=== PATIENT | female | born 1975 | race Caucasian/White ===

== ENCOUNTER 2023-12-19 16:57 | Emergency (ER) | payer OTHER, SELFPAY ==
[2023-12-19 16:59] VITALS: BP 169/110
[2023-12-19 17:14] LABS: % Basophils 0.5 % (0-2); % Eosinophils 1.6 % (0-6); % Immature Granulocytes 0.4 % (0-0.5); % Lymphocytes 25.9 % (20.5-51.1); % Monocytes 5.8 % (1.7-9.3); % Neutrophils 65.8 % (42.2-75.2); Absolute Basophils 0.1 10^3/uL (0-0.2); Absolute Eosinophils 0.2 10^3/uL (0-0.7); Absolute Lymphocytes 2.4 10^3/uL (1.2-3.4); Absolute Monocytes 0.5 10^3/uL (0.1-0.6); Absolute Neutrophils 6.1 10^3/uL (1.4-6.5); Hematocrit 42.4 % (37.0-47.0); Hemoglobin 15.1 g/dL (12.0-16.0); Mean Corp Hgb Conc. 35.6 g/dL (33.0-37.0); Mean Corpuscular Hgb 31.1 pg (27.0-31.0); Mean Corpuscular Volume 87.2 fL (81.0-99.0); Mean Platelet Volume 9.9 fL (7.4-10.4); Nucleated Red Blood Cells % 0 %; Platelet Count 276 10^3/uL (130-400); Red Blood Cell Count 4.86 10^6/uL (4.20-5.40); Red Cell Dist. Width 12.3 % (11.5-14.5); White Blood Cell Count 9.2 10^3/uL (4.8-10.8)
[2023-12-19 17:26] LABS: HCG, Serum Qualitative Screen Negative
[2023-12-19 17:29] LABS: Urine Albumin 2+ (Neg - Trace); Urine Bilirubin 1+ (Negative); Urine Character Slightly Cloudy (Clear); Urine Color Yellow; Urine Glucose Negative (Negative); Urine Ketone 1+ (Negative); Urine Leukocyte 1+ (Negative); Urine Nitrite Positive (Negative); Urine Occult Blood 4+ (Negative); Urine Urobilinogen 1+ (Neg - 1+)
[2023-12-19 17:30] LABS: ALT (SGPT) 35 U/L (0-35); AST (SGOT) 45 U/L (14-36); Albumin 4.3 g/dl (3.5-5.0); Alkaline Phosphatase 56 U/L (38-126); Blood Urea Nitrogen 12 mg/dl (7-17); Calcium 10.2 mg/dl (8.4-10.2); Carbon Dioxide 26 mmol/L (22-30); Chloride 96 mmol/L (98-107); Glucose 179 mg/dl (70-99); Sodium 135 mmol/L (135-145); Total Protein 7.3 g/dl (6.3-8.2); eGFR > 60.00
[2023-12-19 17:37] LABS: Urine Calcium Oxalate Crystals Present
[2023-12-19 17:38] LABS: Urine Red Blood Cell >100 /HPF (0-2)
[2023-12-19 17:39] LABS: Urine Bacteria Few (Negative)
[2023-12-19 18:12] VITALS: BP 124/83
--- NOTE | 2023-12-19 19:23 | ED.GENMED ---
History of Present Illness
General
Chief Complaint: Flank Pain
Source: patient
Time Seen by Provider: 12/19/23 18:19
Travel History
Have you had any contact with someone who has COVID-19?: No
Do you have any symptoms of coronavirus? Fever > 100 degrees, chills, cough, shortness of breath, sore throat, loss of taste or smell, muscle aches, or headache?: No
History of Present Illness
History of Present Illness:
48-year-old male with past medical history of hypertension and sent to the emergency department by primary care physician for evaluation of left-sided flank pain that has been ongoing for about 3 weeks, today noticed diabetes blood in her urine
prompting the primary care physician to send her for further evaluation. Patient does note a history of kidney stones and states the pain feels a little bit similar to this. Denies any fevers, nausea, vomiting, bowel changes, dysuria, urinary
frequency/urgency. Patient has not taken anything for her pain. She denies use of anticoagulants. No other concerns at this time.
Past History
Past History
ED Past Medical History: None
ED Past Surgical History: Cholecystectomy
Social History
Tobacco: Former smoker
Alcohol: None
Drug: None
Personal:
Living: with family
Employment: Employed
Review of Systems
Review of Systems
All Other Systems: ROS reviewed and negative except as documented in HPI and ROS
Phy Exam
Physical Exam
Physical Exam:
GENERAL: Alert , in no apparent distress
EYE: clear conjunctiva b/l
HEAD: NCAT
ENT: o/p clr, mmm.
ABDOMEN: Soft, without focal tenderness, no r/g, no cvat
NEUROLOGICAL: Alert and oriented
SKIN: Warm and dry, skin intact.
MUSCULOSKELETAL: No edema, well perfused.
PSYCH: Normal and appropriate interaction.
Scores
Heart Failure Risk
Heart Failure Risk Score: Not Applicable
Heart Score for Chest Pain Patients
STEMI patient?: Not applicable
Withdrawal Assessment of Alcohol
Withdrawal Assessment Completed?: Not applicable
Course
Orders/Labs/Results
Orders:
Orders
12/19/23 17:02
Test Result ONCE
12/19/23 17:06
Complete Blood Count/With Diff Urgent
Comprehensive Metabolic Panel Urgent
HCG, Serum Qualitative Screen Urgent
12/19/23 17:09
Urinalysis Reflex To Culture Urgent
Date Specimen was Collected: 12/19/23
Time Specimen was Collected: 17:02
Urine Microscopic Reflex Cult Urgent
Urine Culture Urgent
SARA Source: U
Specimen Description:
Date Specimen was Collected: 12/19/23
Time Specimen was Collected: 17:02
12/19/23 18:19
CT Abd/pel Without Iv Or Oral Urgent
Comment:
Reason For Exam: left flank pain, UTI, possible stone
12/19/23 19:05
CefTRIAXone [Rocephin] 1,000 mg IV NOW STA
Abnormal Lab Results
12/19/23 12/19/23
17:06 17:09
MCH 31.1 H pg
(27.0-31.0)
Chloride 96 L mmol/L
(98-107)
Creatinine 0.5 L mg/dL
(0.6-1.0)
Glucose 179 H mg/dl
(70-99)
AST 45 H U/L
(14-36)
Urine Ketones 1+ A
(Negative)
Ur Occult Blood Reflex 4+ A
(Negative)
Urine Nitrite (Reflex) Positive A
(Negative)
Urine Bilirubin 1+ A
(Negative)
Leukocyte Esterase Rfl 1+ A
(Negative)
Urine RBC >100 A /HPF
(0-2)
Urine Bacteria (Reflex) Few A
(Negative)
Urine Albumin (Reflex) 2+ A
(Neg - Trace)
12/19/23 17:06
12/19/23 17:06
Vital Signs
Initial and Last Documented VS:
Initial Vital Signs
Temp Pulse Resp BP Pulse Ox
98.6 F 94 18 169/110 96
12/19/23 16:59 12/19/23 16:59 12/19/23 16:59 12/19/23 16:59 12/19/23 16:59
Last Documented Vital Signs
Temp Pulse Resp BP Pulse Ox
98.6 F 85 16 124/83 96
12/19/23 16:59 12/19/23 18:12 12/19/23 18:12 12/19/23 18:12 12/19/23 16:59
MDM/Problems Addressed
Differential Diagnosis Includes:
Renal/ureteral colic/kidney stone, UTI, pyelonephritis, although this is less likely
MDM/Problems Addressed:
48-year-old female present emergency department for evaluation of left-sided flank pain, today developed hematuria. Labs and urine were initiated from triage and while the labs are unremarkable patient's urinalysis does show 4+ blood, nitrite
positive, 1+ leukocytes, greater than 100 RBCs and WBCs are only 3-5. Possible pyelonephritis versus infected kidney stone. CT of the abdomen pelvis ordered. Will treat with 1 g Rocephin IV. Disposition pending.
*Radiology
Radiology exam reviewed: radiology read reviewed
*Pulse Oximetry
Patient hypoxic: no
*Critical Care Note
Total Time (30-74mins, 75-104mins- exclusive of procedures): Not Applicable
Patient Management
Discussion with other providers: Alcohol And Drug Counselor
Escalation/DeEscalation of care consider admission/obs:
Patient CT scan shows a 5 mm calculus at either layering in the right renal pelvis or at the right UPJ but without any hydronephrosis. Due to the questionable urinary tract infection I notified on-call urologist, Dr. Youssef, who reviewed the
patient's imaging study as well as ER testing and states that as long as the patient's symptoms are controlled and she is afebrile it would be reasonable to send her home with oral antibiotics and close follow-up with him in the office this week.
He asked the patient to contact the office in the morning and he will fit the patient into his schedule to evaluate the patient. She is agreeable with this plan and prefers to be discharged home. Aware of return precautions to the emergency
department.
ED Attending Note
-
Portions of this chart may have been created with voice recognition software.� Occasional wrong word or��sound alike� substitutions may have occurred due to the inherent limitations of voice recognition software.
Discharge Plan
Departure
Patient Disposition: Home (Routine Discharge)
Date of Disposition: 12/19/23
Time of Disposition: 20:50
Patient with high blood pressure during this ER visit?: Yes
Discharge Problem:
Kidney stone on left side, UTI (urinary tract infection)
Instructions: Kidney Stones (DC)
Prescriptions:
New
cefuroxime axetil 500 mg tablet
500 mg PO BID 7 Days Qty: 14 0RF
tamsulosin [Flomax] 0.4 mg capsule
0.4 mg PO DAILY Qty: 15 0RF
No Action
sertraline 100 MG tablet
100 mg PO DAILY
hydrochlorothiazide 12.5 MG capsule
12.5 mg PO DAILY
diclofenac sodium 75 MG tablet,delayed release (DR/EC)
75 mg PO BID Qty: 12 0RF
ondansetron 4 MG tablet,disintegrating
4 mg PO TIDPRN PRN (Reason: nausea) Qty: 12 0RF
Referrals:
Mani Youssef MD [Active] - (Call for appointment this week)
Kilo Quan DO [Family Provider] -
Interventions
Interventions:
*Risk Screen - Suicide Last Done: 12/19/23 16:59
*General Assessment Last Done: 12/19/23 16:59
*Neglect/Abuse Screening Last Done: 12/19/23 16:59
*ED COVID-19 Vaccine History Last Done: 12/19/23 16:59
*Nursing Disposition Last Done: 12/19/23 20:55
FX-Lzodtr-Jwioywhlir Assessment Last Done: 12/19/23 18:09
ED-Female Genitourinary Assessment Last Done: 12/19/23 18:09
Discharge Date and Time
Discharge Date/Time: 12/19/23 20:56
[2023-12-19] MEDS: ROCEPHIN 1000 MG IV (19:28)
== END 2023-12-19 20:56 | disposition home or self-care (01) ==
LOC: EMR 16:57
PROVIDERS: EMERGENCY PHYSICIAN Emergency Medicine; FAMILY PHYSICIAN Family Medicine
DX: N20.0 Calculus of kidney (principal); N39.0 Urinary tract infection, site not specified; I10 Essential (primary) hypertension; Z87.891 Personal history of nicotine dependence; Z87.442 Personal history of urinary calculi
CPT/HCPCS: 99284; 96374; 74176; 80053; 81003; 81015; 84703; 85025; 87086

== ENCOUNTER → 2024-01-23 15:41 | Outpatient (REF) | payer OTHER, SELFPAY ==
[2024-01-23 16:32] LABS: Urine Albumin 1+ (Neg - Trace); Urine Bilirubin 1+ (Negative); Urine Character Very Cloudy (Clear); Urine Color Brown; Urine Glucose 3+ (Negative); Urine Ketone 1+ (Negative); Urine Leukocyte Trace (Negative); Urine Nitrite Positive (Negative); Urine Occult Blood 4+ (Negative); Urine Specific Gravity 1.025 (<1.030); Urine Urobilinogen Negative (Neg - 1+)
[2024-01-23 16:41] LABS: Urine Bacteria Moderate (Negative); Urine Red Blood Cell >100 /HPF (0-2); Urine White Cell 0-2 /HPF (0-5)
== END ==
LOC: RAD 15:41
PROVIDERS: ATTENDING PHYSICIAN Surgery
DX: N39.0 Urinary tract infection, site not specified (principal); N20.1 Calculus of ureter
CPT/HCPCS: 74018; 81003; 81015; 87086

== ENCOUNTER 2024-01-28 04:20 | Inpatient (IN) | payer OTHER, SELFPAY ==
[2024-01-27 22:27] VITALS: BP 177/112; BMI 41.1
--- NOTE | 2024-01-27 23:22 | ED.GENMED ---
History of Present Illness
General
Chief Complaint: Flank Pain
Source: patient
Exam Limitations: none
Time Seen by Provider: 01/27/24 23:20
Nursing documentation reviewed up to this point in time: agreed with
Travel History
Have you had any contact with someone who has COVID-19?: No
Do you have any symptoms of coronavirus? Fever > 100 degrees, chills, cough, shortness of breath, sore throat, loss of taste or smell, muscle aches, or headache?: No
History of Present Illness
History of Present Illness:
48-year-old female with history of HTN, NIDDM, cholecystectomy, kidney stones presents with right flank pain since 4:30 this afternoon. She states she has had hematuria all week as well as nausea but no vomiting. She denies fever or chills.
seen here in 12/19/[address] showed questionable 5 mm calculus at either layering in the right renal pelvis or at the right UPJ but without any hydronephrosis. Diagnosed with urinary tract infection follow-up with Dr. Youssef. Discharged
on cefuroxime 500 mg twice daily x 7 days and tamsulosin.
Past History
Past History
ED Past Medical History: None
ED Past Surgical History: Cholecystectomy
Social History
Tobacco: Former smoker
Alcohol: None
Drug: None
Personal:
Living: with family
Employment: Employed
Review of Systems
Review of Systems
Allergies reviewed?: Yes
All Other Systems: ROS reviewed and negative except as documented in HPI and ROS
Constitutional: Denies fever or chills
Respiratory: Denies trouble breathing
Cardiac: Denies chest pain
ABD/GI: Denies abdominal pain, nausea or vomiting
: Reports flank pain (right) and dark urine; Denies dysuria, frequency or urgency
Musculoskeletal: Reports no symptoms
Skin: Reports no symptoms
Neurological: Reports no symptoms
Phy Exam
Physical Exam
Physical Exam:
GENERAL: No acute distress. A&Ox3.
CONSTITUTIONAL: Afebrile.
EYES:clear, conjunctivae normal
ENMT: moist mucus membranes
RESPIRATORY: Regular respirations, nonlabored, lungs clear.
CARDIOVASCULAR: Regular rate and rhythm, no murmurs, no rubs.
GI: Soft, nontender, normal BS, Right flank tenderness
MUSCULOSKELETAL: Moves with ease. Well perfused.
SKIN: Warm, dry, pink
PSYCH: Normal mood and affect. Well kept, interactive and appropriate
NEUROLOGIC: Awake, alert and oriented. No focal neurological deficits
Course
Orders/Labs/Results
Orders:
Orders
01/27/24 23:15
Test Result ONCE
01/27/24 23:24
Complete Blood Count/With Diff Urgent
Comprehensive Metabolic Panel Urgent
HCG, Serum Qualitative Screen Urgent
Urinalysis Reflex To Culture Urgent
Date Specimen was Collected: 01/27/24
Time Specimen was Collected: 23:15
Urine Microscopic Reflex Cult Urgent
Urine Culture Urgent
SARA Source: U
Specimen Description:
Date Specimen was Collected: 01/27/24
Time Specimen was Collected: 23:15
01/27/24 23:38
Ketorolac [Toradol] 15 mg IV NOW STA
Ondansetron Injectable [Zofran] 4 mg IV NOW STA
01/27/24 23:39
0.9% Sodium Chloride 1000 ml [Nss] 1,000 ml IV BOLUS
01/28/24 00:00
CT Abd/pel Without Iv Or Oral Urgent
Reason For Exam: R flank pain, hx stones
01/28/24 01:40
CefTRIAXone [Rocephin] 1,000 mg IV NOW STA
01/28/24 01:43
UROLOGY CONSULT Urgent
Consulting Provider: Deonte Driscoll
Was physician already notified: Yes
Comment: R ureteral stone
01/28/24 03:26
Admit/Transfer Patient As Directed
Co-Sign Provider:
Level of Care: Inpatient admission
Assign to:: Medical/Surgical
Physician / Group: Wesley
Diagnosis: Nephrolithiasis
Reason for Hospitalization: Nephrolithiasis
Expected length of stay greater than two midnights?: Yes
ELOS- Estimated Length of Stay in days: 2
I certify the patient meets the requirements for IP care: Yes
01/28/24 03:27
Code Status As Directed
Resuscitation Status: Full Code
Abnormal Lab Results
01/27/24
23:24
WBC 14.7 H 10^3/uL
(4.8-10.8)
Abs Immat Gran (auto) 0.1 H 10^3/uL
(0-0.05)
Absolute Neuts (auto) 11.7 H 10^3/uL
(1.4-6.5)
Absolute Monos (auto) 0.8 H 10^3/uL
(0.1-0.6)
Neutrophils % 79.7 H %
(42.2-75.2)
Lymphocytes % 13.4 L %
(20.5-51.1)
BUN 19 H mg/dl
(7-17)
Glucose 234 H mg/dl
(70-99)
Urine Ketones 1+ A
(Negative)
Ur Occult Blood Reflex 4+ A
(Negative)
Urine Nitrite (Reflex) Positive A
(Negative)
Urine Bilirubin 1+ A
(Negative)
Leukocyte Esterase Rfl 1+ A
(Negative)
Urine RBC >100 A /HPF
(0-2)
Urine WBC (Reflex) 11-15 A /HPF
(0-5)
Urine Bacteria (Reflex) Many A
(Negative)
Urine Yeast Moderate A
(Negative)
Urine Albumin (Reflex) 2+ A
(Neg - Trace)
01/27/24 23:24
01/27/24 23:24
Vital Signs
Initial and Last Documented VS:
Initial Vital Signs
Temp Pulse Resp BP Pulse Ox
98.3 F 88 16 177/112 95
01/27/24 22:27 01/27/24 22:27 01/27/24 22:27 01/27/24 22:27 01/27/24 22:27
Last Documented Vital Signs
Temp Pulse Resp BP Pulse Ox
98.3 F 89 16 118/79 93
01/27/24 22:27 01/28/24 02:00 01/28/24 02:00 01/28/24 01:57 01/28/24 01:57
MDM/Problems Addressed
Differential Diagnosis Includes:
Kidney stone, UTI
MDM/Problems Addressed:
48-year-old female with history of HTN, NIDDM, cholecystectomy, kidney stones presents with right flank pain since 4:30 this afternoon. She states she has had hematuria all week as well as nausea but no vomiting. She denies fever or chills.
01/28/2024 0102 AM
CBC: WBC 14.7
CMP: No clinically significant abnormality. Glucose 234
UA: Positive nitrites, leukocytes +1, 4+ blood, greater than 100 RBCs, 11-15 WBCs, many bacteria, moderate yeast
CT abdomen pelvis: Radiology report read: Impression: 6 mm stone within the distal right ureter resulting in moderate right hydronephrosis. Mild right perinephric stranding. Normal appendix.
Moderate stool burden.
Consulted Urology Dr. Driscoll. Pt to be admitted for stent tomorrow
Hospitalist notified of admission. Urology consult in
Pt remains comfortable.
*Critical Care Note
Total Time (30-74mins, 75-104mins- exclusive of procedures): Not Applicable
ED Attending Note
-
Portions of this chart may have been created with voice recognition software.� Occasional wrong word or��sound alike� substitutions may have occurred due to the inherent limitations of voice recognition software.
Discharge Plan
Departure
Patient Disposition: Admit
Date of Disposition: 01/28/24
Time of Disposition: 01:37
Presentation/result/management discussed w/ accepting MD/DO: Hospitalist
Condition: Fair
Discharge Problem:
Calculus of distal right ureter
Prescriptions:
No Action
sertraline 100 MG tablet
100 mg PO HS
hydrochlorothiazide 12.5 MG capsule
12.5 mg PO DAILY
metformin 500 mg Tablet
500 mg PO BID
Lipitor
1 tab PO DAILY
Patient Comments:
unsure of mg
Referrals:
Kilo Quan DO [Family Provider] -
Interventions
Interventions:
*Risk Screen - Suicide Last Done: 01/27/24 22:27
*General Assessment Last Done: 01/27/24 22:27
*Neglect/Abuse Screening Last Done: 01/27/24 22:27
ED- Fall Risk Assessment Last Done: 01/27/24 23:40
*ED COVID-19 Vaccine History Last Done: 01/27/24 22:27
PD-Velikk-Kbkeiytdjt Assessment Last Done: 01/27/24 23:40
ED-Female Genitourinary Assessment Last Done: 01/27/24 23:40
[2024-01-27 23:36] LABS: % Basophils 0.3 % (0-2); % Eosinophils 0.6 % (0-6); % Immature Granulocytes 0.5 % (0-0.5); % Lymphocytes 13.4 % (20.5-51.1); % Monocytes 5.5 % (1.7-9.3); % Neutrophils 79.7 % (42.2-75.2); Absolute Eosinophils 0.1 10^3/uL (0-0.7); Absolute Immature Granulocytes 0.1 10^3/uL (0-0.05); Absolute Monocytes 0.8 10^3/uL (0.1-0.6); Absolute Neutrophils 11.7 10^3/uL (1.4-6.5); Hematocrit 40.3 % (37.0-47.0); Mean Corp Hgb Conc. 34.7 g/dL (33.0-37.0); Mean Corpuscular Hgb 30.4 pg (27.0-31.0); Mean Corpuscular Volume 87.6 fL (81.0-99.0); Mean Platelet Volume 9.8 fL (7.4-10.4); Nucleated Red Blood Cells % 0 %; Platelet Count 204 10^3/uL (130-400); Red Cell Dist. Width 12.7 % (11.5-14.5); White Blood Cell Count 14.7 10^3/uL (4.8-10.8)
[2024-01-27 23:37] LABS: Urine Albumin 2+ (Neg - Trace); Urine Bilirubin 1+ (Negative); Urine Character Very Cloudy (Clear); Urine Color Brown; Urine Glucose Negative (Negative); Urine Ketone 1+ (Negative); Urine Leukocyte 1+ (Negative); Urine Nitrite Positive (Negative); Urine Occult Blood 4+ (Negative); Urine Specific Gravity 1.025 (<1.030); Urine Urobilinogen Negative (Neg - 1+); Urine pH 6.5 (5.0-9.0)
[2024-01-27] MEDS: TORADOL 15 MG IV (23:46)
[2024-01-27] MEDS: ZOFRAN 4 MG IV (23:47)
[2024-01-27 23:48] LABS: HCG, Serum Qualitative Screen Negative
[2024-01-27] MEDS: NSS 1000 IV (23:49)
[2024-01-27 23:52] LABS: ALT (SGPT) 25 U/L (0-35); AST (SGOT) 28 U/L (14-36); Albumin 4.3 g/dl (3.5-5.0); Alkaline Phosphatase 66 U/L (38-126); Blood Urea Nitrogen 19 mg/dl (7-17); Carbon Dioxide 23 mmol/L (22-30); Chloride 100 mmol/L (98-107); Estimated Creatinine Clearance > 125 ml/min; Glucose 234 mg/dl (70-99); Potassium 3.8 mmol/L (3.5-5.1); Sodium 135 mmol/L (135-145); Total Protein 7.1 g/dl (6.3-8.2); eGFR > 60.00
[2024-01-27 23:57] VITALS: BP 144/57
[2024-01-27 23:59] VITALS: BP 144/57
[2024-01-28] VITALS (11 sets, daily range): BP systolic 103–146; BP diastolic 51–89; BMI 40.9
[2024-01-28 00:14] LABS: Urine Bacteria Many (Negative); Urine Red Blood Cell >100 /HPF (0-2); Urine Squamous Cell 0-2 /LPF (Few); Urine Yeast Moderate (Negative)
[2024-01-28] MEDS: ROCEPHIN 1000 MG IV (01:55)
--- NOTE | 2024-01-28 03:31 | HPS.HSE ---
Family Physician
-
Family Physician: Kilo Quan
Chief Complaint
-
R Flank Pain
History of Present Illness
Patient is a 48y F with PMH significant for hypertension and DM-II who presents to ED complaining of right flank pain. Patient initially was seen in the ED here about one month ago due to hematuria. Patient had noted dark and occasionally
grossly bloody urine prompting ED visit on 12/19/23. CT done at that visit showed R sided ureteral stone near the UPJ. Patient was discharged to home on PO abx and had follow-up with Urology. She was started on Flomax. She has not passed the
stone that she is aware of. Patient states that she had some mild LEFT sided flank pain intermittently. This afternoon around 4:30, she developed sudden onset of severe R sided flank pain.
Patient then developed nausea and had multiple episodes of non-bloody, bilious emesis. She presented to the ED for further evaluation.
At present, she is feeling much improved s/p pain medication and antiemetics.
Medical History
Past Medical History
Past Medical History: Reports Other
Additional Past Medical History:
Hypertension
DM-II
Obesity
Nephrolithiasis
Past Surgical History: Reports Other
Additional Past Surgical History:
Cholecystectomy
Social History
Tobacco: Non-smoker
Alcohol: None
Drug: None
Family History
Family History: Not pertinent
Allergies / Home Medications
Allergies reflects when Allergies were last updated in [employer].
Home Medications with original date entered in [employer]
Allergy/Medication List:
Allergies
Allergy/AdvReac Type Severity Reaction Status Date / Time
levaquin Allergy Rash Uncoded 01/27/24 22:34
Home Medications
hydrochlorothiazide 12.5 mg capsule 12.5 mg PO DAILY 07/17/19
sertraline 100 mg tablet 100 mg PO HS 07/17/19
Lipitor 1 tab PO DAILY 01/27/24
metformin 500 mg tablet 500 mg PO BID 01/27/24
Review of Systems
-
History Source: Patient
A 12 point ROS was completed and negative except as noted: Yes
Constitutional: Denies Fever or Chills
Respiratory: Denies Cough or Trouble Breathing
Cardiac: Denies Chest Pain or Palpitations
Abdomen/GI: Reports Nausea and Vomiting; Denies Abdominal Pain, Diarrhea, Bloody Stools or Black Stools
: Reports Flank Pain and Bleeding; Denies Dysuria
Neurological: Denies Dizzy or Headache
Psych: Denies Depression or Anxiety
Physical Exam
Vital Signs
Vital Signs
Temp Pulse Resp BP Pulse Ox
98.3 F 89 16 118/79 93
01/27/24 22:27 01/28/24 02:00 01/28/24 02:00 01/28/24 01:57 01/28/24 01:57
Physical Exam
General: Other (48y F in no acute distress.)
HEENT: Moist mucous membranes and PERRLA
Respiratory: Clear; No Wheezes, Rales or Rhonchi
Cardiac: S1/S2 and Regular Rhythm; No Murmur
GI: Soft, Non Tender, Non Distended and Normal Bowel Sounds
Genito-urinary: Costovertebral angle tend (Right)
Musculoskeletal: No Clubbing, No Cyanosis and No Edema
Neuro: AO x 3
Laboratory Results
-
01/27/24 23:24
01/27/24 23:24
Laboratory Results
Total Bilirubin 1.0 mg/dl (0.2-1.3) 01/27/24 23:24
AST 28 U/L (14-36) 01/27/24 23:24
ALT 25 U/L (0-35) 01/27/24 23:24
Alkaline Phosphatase 66 U/L (38-126) 01/27/24 23:24
Impression/Plan
-
A/P: Patient is a 48y F with PMH significant for hypertension and DM-II who presents to ED complaining of R flank pain and N/V starting this afternoon / evening.
Right Ureterolithiasis
UTI / Pyelonephritis secondary to the above
- Admit for further evaluation and treatment.
- NPO, IVFs, pain control and IV abx.
- Urology evaluation for possible cysto / stent in the AM.
- Strain urine in the interim.
- Follow-up culture data and adjust abx regimen as appropriate.
- Patient notes that she has never had a stone analysis despite multiple prior kidney stones in the past.
Benign Hypertension
- Stable. Hold HCTZ acutely.
DM-II
- Stable. Hold PO medication acutely.
- Follow glucose and cover with SSI as needed.
- Update A1C.
Morbid Obesity due to excess calories
- Affects all aspects of care.
- Encourage healthy diet and increased activity with goal of weight loss.
DVT Prophylaxis: SCDs
Code Status: Full
[2024-01-28] MEDS: NSS 1000 IV (05:22)
--- NOTE | 2024-01-28 05:47 | PTCARENOTE ---
Pt admitted to floor from ED. AAOx3. VSS. Reports no pain at present. Pt is NPO. CHG wipes done. Straining urine. Oriented to room and use of call rain. Will monitor.
[2024-01-28 07:05] LABS: Glucose - Point of Care 149 mg/dl (70-99)
[2024-01-28 07:30] LABS: Hematocrit 35.2 % (37.0-47.0); Hemoglobin 12.3 g/dL (12.0-16.0); Mean Corp Hgb Conc. 34.9 g/dL (33.0-37.0); Mean Corpuscular Hgb 30.4 pg (27.0-31.0); Mean Corpuscular Volume 86.9 fL (81.0-99.0); Mean Platelet Volume 10.1 fL (7.4-10.4); Platelet Count 208 10^3/uL (130-400); Red Blood Cell Count 4.05 10^6/uL (4.20-5.40); Red Cell Dist. Width 12.6 % (11.5-14.5); White Blood Cell Count 9.8 10^3/uL (4.8-10.8)
[2024-01-28 08:11] LABS: Blood Urea Nitrogen 18 mg/dl (7-17); Calcium 8.7 mg/dl (8.4-10.2); Carbon Dioxide 24 mmol/L (22-30); Chloride 104 mmol/L (98-107); Estimated Creatinine Clearance > 125 ml/min; Glucose 154 mg/dl (70-99); Potassium 3.7 mmol/L (3.5-5.1); Sodium 134 mmol/L (135-145); eGFR > 60.00
[2024-01-28 08:43] LABS: Glycohemoglobin (HgbA1c) 8.2 % (4.0-5.6)
[2024-01-28] MEDS: FLOMAX 0.400000000000000022 MG PO (09:02)
--- NOTE | 2024-01-28 10:39 | CONS.URO ---
Consultation
-
Performing Provider: Peffer
Reason for Consultation: ureteral stone
Medical History
History of Present Illness
48F with prior history of stones, always passed spontaneously prior
Had several weeks of abdominal pain and known R ureter stone on KUB
Now with a few days of gross hematuria developing into severe pain last night
No fevers at home
On admit to ER, CT showed 6mm R distal ureteral stone
WBC elevated with positive UA indicative of associated infection
Past Medical History
Past Medical History: Other (see H&P)
Past Surgical History: Urological
Social History
Alcohol: None
Drug: None
Living: With Family
Family History
Family History: Reviewed & Not Pertinent
Allergies/Home Medications
Allergies
Allergy/AdvReac Type Severity Reaction Status Date / Time
levaquin Allergy Rash Uncoded 01/27/24 22:34
Home Medications
Medication Instructions Recorded Confirmed Type
hydrochlorothiazide 12.5 mg capsule 12.5 mg PO DAILY Blood Pressure 07/17/19 01/27/24 History
sertraline 100 mg tablet 100 mg PO HS Mental Health/Anxiety 07/17/19 01/27/24 History
Lipitor 40 mg PO DAILY High Cholesterol 01/27/24 01/28/24 History
metformin 500 mg tablet 500 mg PO BID Diabetes 01/27/24 01/27/24 History
Physical Exam
Vital Signs
Vital Signs
Temp Pulse Resp BP Pulse Ox
97.9 F 77 16 127/78 95
01/28/24 07:00 01/28/24 07:00 01/28/24 07:00 01/28/24 07:00 01/28/24 07:00
Lab / Testing Results
Laboratory Results
01/28/24 07:13
01/28/24 07:13
Physical Exam
General: Well Developed, Well Nourished and No Apparent Distress
Respiratory: Non Labored Respirations
GI: Soft and Non Tender
Genito-urinary: No Costovertebral Tend
Neuro: Awake, AO x 3 and No Motor Deficits
Psych: Calm and Intact Judgement
Assessment / Plan
-
48F with 6mm R distal ureteral stone
Nitrite + cloudy urine with leukocytosis concerning for associated infection
This AM leukocytosis resolved and patient feeling well
Discussed options of continued outpatient trial of passage with PO abx vs operative intervention
We decided given the risk of ascending infection to proceed with ureteral stent placement
Discussed that she will need another procedure after clearing UTI to retrieve the stone
NPO
OR this AM for cysto, R stent placement
continue abx pending culture results
--- NOTE | 2024-01-28 11:35 | W.IMMPOSTOP ---
Surgical Immed Post Op Note
-
Primary Surgeon: Peffer
Assisting Surgeon: none
Pre-op Diagnosis: R ureteral stone, UTI
Post-op Diagnosis: same
Procedure Performed: cystoscopy, R ureteral stent
Anesthesia Type: gen
Specimen / Cultures: none
Estimated Blood Loss: none
Complications: none
Operative Findings: mildly purulent urine above stone
R ureteral stent in good position
[2024-01-28 11:38] LABS: Glucose - Point of Care 141 mg/dl (70-99)
--- NOTE | 2024-01-28 11:41 | PTCARENOTE ---
Assumed care of pt from previous nurse, Pt in the OR, awaiting her return.
[2024-01-28 17:47] LABS: Glucose - Point of Care 260 mg/dl (70-99)
[2024-01-28] MEDS: NOVOLOG FLEXPEN-LOW RESISTANCE 300 UNITS SC (19:12)
[2024-01-28] MEDS: ZOLOFT 100 MG PO (20:56)
[2024-01-28 21:16] LABS: Glucose - Point of Care 231 mg/dl (70-99)
[2024-01-29] MEDS: STERILE WATER FOR INJECTION 10 ML IV (02:47)
[2024-01-29] MEDS: ROCEPHIN 1000 MG IV (02:47)
[2024-01-29 07:00] VITALS: BP 142/96
[2024-01-29 07:57] LABS: Glucose - Point of Care 162 mg/dl (70-99)
[2024-01-29] MEDS: FLOMAX 0.400000000000000022 MG PO (08:00)
[2024-01-29] MEDS: NOVOLOG FLEXPEN-LOW RESISTANCE 1 UNITS SC (08:00)
--- NOTE | 2024-01-29 09:45 | W.PN.HOSP.TC ---
Today's Communication/Plan
-
d/c home
Assessment / Plan
Assessment / Plan
Patient is a 48y F with PMH significant for hypertension and DM-II who presents to ED complaining of R flank pain and N/V starting this afternoon / evening.
Right Ureterolithiasis
UTI / Pyelonephritis secondary to the above
Hematuria
- s/p right ureteral stenting by Dr Driscoll on 01/27
- Urine cs neg. intraop pending
- appropriate response with rocephin and will convert to omnicef 7 days at discharge.
- f/u with urologu in office
- Minimal episodic hematuria to be expected for next few days
Benign Hypertension
�- Stable.� Hold HCTZ acutely.
DM-II
�- Stable.� Hold PO medication acutely.
�- Follow glucose and cover with SSI as needed.
Morbid Obesity due to excess calories
�- Affects all aspects of care.
�- Encourage healthy diet and increased activity with goal of weight loss.
DVT Prophylaxis:� SCDs
Code Status:� Full
More than 30 minutes spent in discharge including
Final examination of the patient
Summarizing hospital stay
Instructions for continuing care to all relevant caregivers
Preparation of discharge records, prescriptions, and referral forms
Total time spent (in minutes): 38 mins
Anticipated Discharge: Today
Subjective/Interval History
-
Date of Service: January 29, 2024
some pain and minimal blood in urine
no new issues
afebrile overnight
Objective Data
-
Vital Signs:
Vital Signs
Temp Pulse Resp BP Pulse Ox
97.4 F 80 18 142/96 98
01/29/24 07:00 01/29/24 07:00 01/29/24 07:00 01/29/24 07:00 01/29/24 07:00
I&O
01/28/24 01/29/24 01/30/24
06:59 06:59 06:59
Intake Total 1200 / 1200
Balance 1200 / 1200
Review of Systems
-
Respiratory: Reports No Symptoms
Cardiac: Reports No Symptoms
Abdomen/GI: Reports No Symptoms
Physical Exam
-
General: No Apparent Distress and Comfortable
HEENT: Negative Oxygen
Respiratory: Clear to Auscultation
Cardiac: Regular Rhythm and S1/S2; Negative Murmur or Rub
GI: Soft and Nontender
Musculoskeletal: No Edema
Neuro: Awake, Alert, Oriented, No Motor Deficits and Nonfocal/Grossly Intact
Psych: Calm
--- NOTE | 2024-01-29 10:55 | CM ---
Patient d/c home.
Spouse transported.
Plan: d/c home no needs.
r
--- NOTE | 2024-01-29 13:08 | W.DCSUMMARY ---
Discharge Summary
Discharge Data
Date of Admission: 01/28/24
Date of Discharge: 01/29/24
-
Pending Results: No
Hospital Course
Discharging Physician : Dr Rahat Mackey
Disposition : To home
Primary care physician : Dr Kilo Quan
Principal Discharge diagnosis :
Right ureteral obstructing stone
Urinary tract infection, organism unknown
Right-sided hydronephrosis
Episodic hematuria
Chronic Discharge diagnosis :
Essential hypertension
Hyperlipidemia
Fnz-zunffph-xnrsyexuz diabetes mellitus
Depression
Hospital Course :
Patient is a 48-year-old female with above-mentioned past medical history came to ER with new onset of right flank pain. Associated with this patient been having episodic hematuria for last few weeks. CT scan of abdomen done few weeks before on ER
visit was showing right ureteral stone near the UPJ junction. Patient was discharged home with expectation of patient passing stone at home, unfortunately patient symptoms did not improve and came back to hospital. Repeat CT abdomen pelvis this
ER visit showing distal right ureteral stone and hydronephrosis with some perinephric fat stranding. UA showing some pyuria and bacteria patient was started on IV antibiotic and urology was consulted. Due to known passage of stone and with
conservative management patient was taken to the OR and had cystoscopy done with ureteral stent placement. IntraOp urine cultures were collected results of which are pending at time of discharge. Patient was monitored one more night postprocedure
and had appropriate response with IV Rocephin therapy. Discharge patient transition to oral Omnicef therapy. Patient to follow-up with urology in office for stent removal.
Important imaging findings :
CT a/p
1. � There is a 6 mm calcification in the distal right ureter in the mid pelvis, with subsequent hydronephrosis and hydroureter with perinephric stranding.
2. � No other intrarenal calcifications. Bilateral hypodense lesions in the kidneys consistent with cysts.
3. � Severe steatosis and hepatosplenomegaly. Prior cholecystectomy.
4. � Bilateral ovarian hypodensities consistent with simple cysts, on the left this measures 4.5 cm.
5. � Small bilateral pleural effusions right greater than left. Possible esophagitis versus small hiatal hernia with distal esophageal wall thickening.
Procedure findings :
None
Discharge Plan
-
Patient Disposition: Home (Routine Discharge)
Discharge Diagnosis/Procedures: Right ureteral stone and obstructive uropathy
Condition: Fair
Diet: Diabetic, Carb Controlled
Activity: As tolerated
Driving Restrictions: As prior to admission
Bathing Restrictions: OK to Shower
Referrals:
Kilo Quan DO [Family Provider] - in one week
Deonte Driscoll MD [Active] -
Prescriptions:
New
cefdinir 300 mg capsule
300 mg PO BID 5 Days Qty: 10 0RF
Continued
sertraline 100 MG tablet
100 mg PO HS
hydrochlorothiazide 12.5 MG capsule
12.5 mg PO DAILY
metformin 500 mg Tablet
500 mg PO BID
Lipitor
40 mg PO DAILY
Patient Comments:
unsure of mg
Discharge Orders:
Discharge Patient (As Directed); Ordered 01/29/24
Ordered By: Rahat Mackey
Discharge Date and Time
Discharge Date/Time: 01/29/24 10:21
== END 2024-01-29 10:21 | disposition home or self-care (01) | DRG 660 ==
LOC: 4 WEST ACU 04:20
PROVIDERS: ADMITTING PHYSICIAN Hospitalist; ATTENDING PHYSICIAN Hospitalist; CONSULT PHYSICIAN Urology; EMERGENCY PHYSICIAN Emergency Medicine; FAMILY PHYSICIAN Family Medicine
PROC: 0T768DZ Dilation of Right Ureter with Intraluminal Device, Via Natural or Artificial Opening Endoscopic (ICD-10-PCS; 2024-01-29)
DX: N13.6 Pyonephrosis (principal); Z68.41 Body mass index [BMI] 40.0-44.9, adult; E11.9 Type 2 diabetes mellitus without complications; R11.14 Bilious vomiting; E66.01 Morbid (severe) obesity due to excess calories; I10 Essential (primary) hypertension; R31.0 Gross hematuria; R16.2 Hepatomegaly with splenomegaly, not elsewhere classified; Z87.442 Personal history of urinary calculi; Z87.891 Personal history of nicotine dependence; Z90.49 Acquired absence of other specified parts of digestive tract; Z79.84 Long term (current) use of oral hypoglycemic drugs; Z88.1 Allergy status to other antibiotic agents
CPT/HCPCS: 74018; 74176; 76000; 80048; 80053; 81003; 81015; 82962; 83036; 84703; 85025; 85027; 87086; 96361; 96374; 96375; 99285; C2617

== ENCOUNTER 2024-02-10 06:20 | Day surgery (SDC) | payer OTHER, SELFPAY ==
[2024-02-10] VITALS (7 sets, daily range): BP systolic 120–140; BP diastolic 53–85; BMI 39.1
[2024-02-10 11:57] LABS: Glucose - Point of Care 156 mg/dl (70-99)
[2024-02-10 13:13] LABS: Glucose - Point of Care 139 mg/dl (70-99)
[2024-02-10] MEDS: DETROL LA 4 MG PO (13:21)
[2024-02-10] MEDS: Pyridium 200 MG PO (13:22)
== END 2024-02-10 14:30 | disposition home or self-care (01) ==
LOC: SDS 06:20
PROVIDERS: ATTENDING PHYSICIAN Surgery
DX: N13.6 Pyonephrosis (principal); N20.1 Calculus of ureter
CPT/HCPCS: 52356; 74018; 76000; 82365; 82962; A4300; C1758; C1769

== ENCOUNTER 2025-03-08 06:18 | Day surgery (SDC) | payer OTHER, SELFPAY ==
[2025-03-08 07:42] LABS: Glucose - Point of Care 143 mg/dl (70-99)
== END 2025-03-08 09:49 | disposition home or self-care (01) ==
LOC: GI 06:18
PROVIDERS: ATTENDING PHYSICIAN Internal Medicine Gastroenterology; FAMILY PHYSICIAN Family Medicine
DX: Z12.11 Encounter for screening for malignant neoplasm of colon (principal); K57.30 Diverticulosis of large intestine without perforation or abscess without bleeding; K63.5 Polyp of colon
CPT/HCPCS: 45385; 88305; 82962